=== PATIENT | male | born 2000 | race Hispanic/Latino ===

== ENCOUNTER 2020-03-31 17:00 | Emergency (ER) | payer OTHER ==
[~2020-03-31] VITALS: Ht 170.2 cm; Wt 72.7 kg
[2020-03-31] MEDS ORDERED: IBUPROFEN600 MG PO (18:17)
[2020-03-31] MEDS ORDERED: HYDROCO/APAP1 TA9 PO (18:17)
[2020-03-31 18:35] VITALS: BP 128/74
== END 2020-03-31 18:36 | disposition home or self-care (01) ==
LOC: ED 17:00
DX: S42.022A Displaced fracture of shaft of left clavicle, initial encounter for closed fracture (principal); F17.200 Nicotine dependence, unspecified, uncomplicated; W18.39XA Other fall on same level, initial encounter; Y93.66 Activity, soccer; Y92.322 Soccer field as the place of occurrence of the external cause

== ENCOUNTER 2022-11-04 18:18 | Emergency (ER) | payer SELFPAY ==
[2022-11-04] VITALS (12 sets, daily range): BP systolic 112–142; BP diastolic 68–92
[~2022-11-04] VITALS: Ht 170.2 cm; Wt 77.2 kg
[~2022-11-04 18:18] MED LIST: HYDROCO/APAP1 TA9 PO; IBUPROFEN600 MG PO
[2022-11-04 19:58] LABS: BASO% 0.3 % (0-3); EOS% 0.4 % (0-8); HEMATOCRIT 50.5 % (39.0-50.0); HEMOGLOBIN 17.1 g/dl (14.0-18.0); IMMATURE GRANULOCYTES 0.1 % (0.0-5.0); LYMPH% 20.7 % (15-41); MEAN CELL VOLUME 86.3 fL CALC (80.0-100.0); MEAN CORPUSCULAR HGB 29.2 pG CALC (26.0-32.0); MEAN CORPUSCULAR HGB CONC 33.9 g/dL CAL (32.0-36.0); MONO% 5.7 % (2-13); NEUT# 9.88 thou/uL (1.82-7.42); NEUT% 72.8 % (42-76); RED BLOOD COUNT 5.85 mill/uL (4.70-6.10); RED CELL DISTRI WIDTH 12.2 % (11.5-15.5)
[2022-11-04 20:13] LABS: ALBUMIN 5.4 g/dL (3.2-5.0); ALKALINE PHOSPHATASE 124 u/l (38-126); ANION GAP 19 (6-22 (CALC)); BILIRUBIN, TOTAL 1.9 mg/dL (0.2-1.3); BUN 7 mg/dL (9-20); BUN/CREATININE RATIO 8 (12-20 (CALC)); CARBON DIOXIDE 19 mmol/l (22-30); CHLORIDE 105 mmol/l (95-108); CREATININE 0.9 mg/dL (0.7-1.3); GFR FOR AFR.AMER. > 60 ML/MIN (>=60 (CALC)); GFR OTHER RACES > 60 ML/MIN (>=60 (CALC)); POTASSIUM 3.4 mmol/l (3.5-5.1); SGOT/AST 27 u/l (17-59); SODIUM 140 mmol/l (137-146); TOTAL PROTEIN 8.9 g/dL (6.3-8.2)
[2022-11-04 20:58] LABS: ETHYL ALCOHOL 0 mg/dl (0-30)
[2022-11-04] MEDS ORDERED: LEXAPRO5 MG PO (21:45)
[2022-11-04] MEDS ORDERED: VISTARIL25 MG PO (21:45)
== END 2022-11-04 22:27 | disposition home or self-care (01) | DRG 880 ==
LOC: ED 18:18
PROVIDERS: Nurse Practitioner
DX: F43.0 Acute stress reaction (principal); F41.9 Anxiety disorder, unspecified; F32.A Depression, unspecified
CPT/HCPCS: J2060